=== PATIENT | female | born 1995 | race American Indian/Alaskan Native ===

== ENCOUNTER 2019-12-19 15:53 | Emergency (ER) | payer MEDICAID ==
[2019-12-19 16:27] LABS: Basophils # (Auto) 0.1 K/mm3 (0.0-0.1); Basophils % (Auto) 1.3 % (0.0-1.8); Eosinophils # (Auto) 0.1 K/mm3 (0.0-0.4); Eosinophils % (Auto) 1.6 % (0.0-4.3); Hematocrit 45.4 % (30.3-42.9); Hemoglobin 15.3 gm/dl (10.1-14.3); Lymphocytes # (Auto) 1.6 K/mm3 (1.2-5.4); Lymphocytes % (Auto) 18.3 % (13.4-35.0); Mean Corpuscular HGB Conc 34 % (30-34); Mean Corpuscular Volume 95 fl (79-97); Monocytes # (Auto) 0.6 K/mm3 (0.0-0.8); Monocytes % (Auto) 6.8 % (0.0-7.3); Platelet Count 228 K/mm3 (140-440); Red Cell Distribution Width 13.3 % (13.2-15.2)
[2019-12-19 16:46] LABS: BUN/Creatinine Ratio 9; Blood Urea Nitrogen 7 mg/dL (7-17); Calcium 10.4 mg/dL (8.4-10.2); Hemolysis Index 46
[2019-12-19 17:55] VITALS: BP 146/89
== END 2019-12-19 17:42 | disposition left against medical advice (07) ==
LOC: ED 15:53
DX: F22 Delusional disorders (principal); F20.9 Schizophrenia, unspecified; F31.9 Bipolar disorder, unspecified; Z53.21 Procedure and treatment not carried out due to patient leaving prior to being seen by health care provider
CPT/HCPCS: 36415; 80048; 80320; 85025; G0480

== ENCOUNTER 2019-12-20 08:59 | Emergency (ER) | payer MEDICAID ==
[2019-12-20] MEDS ORDERED: LORazepam 2 MG/ML VIAL IM ONE ×2 (09:45→17:24)
[2019-12-20] MEDS ORDERED: ZIPRASIDONE MESYLATE 20 MG VIAL IM ONE (09:45)
[2019-12-20] MEDS ORDERED: ACETAMINOPHEN 325 MG TAB PO PRN (09:46)
[2019-12-20] MEDS ORDERED: MAGNESIUM HYDROXIDE (MOM) ORAL LIQD UDC PO PRN (09:46)
[2019-12-20] MEDS ORDERED: ALUM-MAG HYDROXIDE-SIMETHICONE 200-200-20MG/5ML ORAL LIQD 30 ML PO PRN (09:46)
[2019-12-20 11:59] LABS: BUN/Creatinine Ratio 8; Blood Urea Nitrogen 7 mg/dL (7-17); Calcium 9.9 mg/dL (8.4-10.2); Hemolysis Index 15
[2019-12-20 12:03] LABS: Alanine Aminotransferase 23 units/L (7-56); Albumin 4.3 g/dL (3.9-5)
[2019-12-20 12:06] LABS: Bilirubin,Direct < 0.2 mg/dL (0-0.2)
[2019-12-20 12:12] LABS: Basophils % (Auto) 0.5 % (0.0-1.8); Eosinophils # (Auto) 0.2 K/mm3 (0.0-0.4); Hematocrit 42.5 % (30.3-42.9); Hemoglobin 14.5 gm/dl (10.1-14.3); Lymphocytes # (Auto) 1.9 K/mm3 (1.2-5.4); Lymphocytes % (Auto) 19.5 % (13.4-35.0); Mean Corpuscular HGB Conc 34 % (30-34); Mean Corpuscular Volume 95 fl (79-97); Monocytes # (Auto) 0.8 K/mm3 (0.0-0.8); Monocytes % (Auto) 8.7 % (0.0-7.3); Platelet Count 210 K/mm3 (140-440); Red Blood Count 4.49 M/mm3 (3.65-5.03); Red Cell Distribution Width 13.5 % (13.2-15.2)
--- NOTE | 2019-12-20 12:22 | Emergency Department Report ---
ED Psych HPI - General Chief Complaint: Psych Stated Complaint: MENTAL HEALTH Time Seen by Provider: 12/20/19 09:45 Source: patient Mode of arrival: Ambulatory - History of Present Illness Initial Comments: This is a 53-year-old female with a history of bipolar disorder/schizophrenia. She is brought in by her family for "erratic behavior". On arrival she is quite agitated with flight of ideas. She cannot be examined. She required parenteral Geodon and Ativan. That after she became copacetic. She has no active complaints. She is speaking in single words. MD Complaint: other (Excited delirium) Associated Psychiatric Symptoms: racing thoughts, delusions, other (Aggressive behavior) Quality: constant Improves With: none Worsens With: none - Related Data Allergies Allergy/AdvReac Type Severity Reaction Status Date / Time No Known Allergies Allergy Unverified 12/19/19 16:03 ED Review of Systems ROS: Stated complaint: MENTAL HEALTH Other details as noted in HPI Comment: Unobtainable due to pts medical conditions ED Past Medical Hx - Past Medical History Previous Medical History?: Yes Hx Psychiatric Treatment: Yes (Bipolar, Schizophrenia) Additional medical history: Vaginal delivery x 1 - Surgical History Past Surgical History?: Yes Additional Surgical History: x 2 - Social History Smoking Status: Current Every Day Smoker Substance Use Type: Alcohol, Cocaine, Heroin, Marijuana ED Physical Exam - General Limitations: No Limitations General appearance: alert, in no apparent distress - Head Head exam: Present: atraumatic, normocephalic - Eye Eye exam: Present: normal appearance. Absent: scleral icterus - ENT ENT exam: Present: mucous membranes moist - Neck Neck exam: Present: normal inspection. Absent: tenderness, meningismus - Respiratory Respiratory exam: Present: normal lung sounds bilaterally. Absent: respiratory distress - Cardiovascular Cardiovascular Exam: Present: regular rate, normal rhythm. Absent: systolic murmur, diastolic murmur, rubs, gallop - GI/Abdominal GI/Abdominal exam: Present: soft, normal bowel sounds. Absent: distended, tenderness, guarding, rebound, rigid - Extremities Exam Extremities exam: Present: normal inspection - Back Exam Back exam: Present: normal inspection - Neurological Exam Neurological exam: Present: alert, oriented X3, CN II-XII intact (As testable). Absent: motor sensory deficit - Psychiatric Psychiatric exam: Present: agitated, manic - Skin Skin exam: Present: warm, dry, intact, normal color. Absent: rash ED Course Vital Signs 12/20/19 12/20/19 09:08 09:30 Temperature 97.6 F Pulse Rate 103 H 74 Respiratory 18 20 Rate Blood Pressure 154/90 109/67 [Right] O2 Sat by Pulse 98 96 Oximetry - Reevaluation(s) Reevaluation #1: Required chemical sedation. Was given Geodon and Ativan. Patient improved. She is still very disorganized and further history is unobtainable. 12/20/19 12:21 ED Medical Decision Making - Lab Data Result diagrams: 12/20/19 11:14 12/20/19 11:14 Laboratory Results - last 24 hr 12/20/19 12/20/19 12/20/19 11:14 11:14 11:14 WBC 9.6 RBC 4.49 Hgb 14.5 H Hct 42.5 MCV 95 MCH 32 MCHC 34 RDW 13.5 Plt Count 210 Lymph % (Auto) 19.5 [place] % (Auto) 8.7 H Eos % (Auto) 2.0 Baso % (Auto) 0.5 Lymph # (Auto) 1.9 [place] # (Auto) 0.8 Eos # (Auto) 0.2 Baso # (Auto) 0.0 Seg Neutrophils % 69.3 Seg Neutrophils # 6.6 Sodium 140 Potassium 3.9 Chloride 105.0 Carbon Dioxide 25 Anion Gap 14 BUN 7 Creatinine 0.9 Estimated GFR > 60 BUN/Creatinine Ratio 8 Glucose 82 Calcium 9.9 Total Bilirubin Direct Bilirubin AST ALT Alkaline Phosphatase Total Creatine Kinase CK-MB (CK-2) CK-MB (CK-2) Rel Index Total Protein Albumin Albumin/Globulin Ratio Salicylates < 0.3 L Acetaminophen 12/20/19 12/20/19 11:14 11:14 WBC RBC Hgb Hct MCV MCH MCHC RDW Plt Count Lymph % (Auto) [place] % (Auto) Eos % (Auto) Baso % (Auto) Lymph # (Auto) [place] # (Auto) Eos # (Auto) Baso # (Auto) Seg Neutrophils % Seg Neutrophils # Sodium Potassium Chloride Carbon Dioxide Anion Gap BUN Creatinine Estimated GFR BUN/Creatinine Ratio Glucose Calcium Total Bilirubin 0.50 Direct Bilirubin < 0.2 AST 22 ALT 23 Alkaline Phosphatase 122 Total Creatine Kinase 257 H CK-MB (CK-2) 3.0 CK-MB (CK-2) Rel Index 1.1 Total Protein 7.2 Albumin 4.3 Albumin/Globulin Ratio 1.5 Salicylates Acetaminophen 5.0 L Critical care attestation.: If time is entered above; I have spent that time in minutes in the direct care of this critically ill patient, excluding procedure time. ED Disposition Clinical Impression: Delirium, Acute psychosis, Polysubstance abuse, Medical clearance for psychiatric admission Disposition: [id number]/TX-65 PSY HOSP/PSY UNIT Is pt being admited?: No Does the pt Need Aspirin: No Condition: Stable Referrals: PRIMARY CARE, [Primary Care Provider] - 3-5 Days Time of Disposition: 12:22
[2019-12-20] MEDS ORDERED: ZIPRASIDONE MESYLATE 20 MG VIAL IM PRN (12:23)
[2019-12-20 14:39] LABS: Bacteria,Urine 2+ /HPF (Negative); Bilirubin,Urine NEG (Negative); Blood,Urine LG (Negative); Color,Urine Amber (Yellow); Mucus,Urine 3+ /HPF
[2019-12-20 14:55] LABS: Amphetamine Screen,Urine Negative; Benzodiazepines Screen,Urine Negative; Cannabinoid Screen,Urine Negative; Cocaine Screen,Urine Negative; Methadone Screen,Urine Negative; Opiate Screen,Urine Negative
[2019-12-20] MEDS ORDERED: LORazepam 2 MG/ML VIAL ONE (17:20)
[2019-12-20] MEDS ORDERED: HALOPERIDOL LACTATE 5 MG/1 ML INJ ONE (17:20)
[2019-12-20] MEDS ORDERED: HALOPERIDOL LACTATE 5 MG/1 ML INJ IM ONE (17:24)
[2019-12-20] MEDS: ZIPRASIDONE 20 MG CAP PO SCH (21:35)
[2019-12-21 07:50] VITALS: BP 124/77
--- NOTE | 2019-12-21 09:42 | Consultation ---
History of Present Illness - Reason for Consult Consult date: 12/21/19 Reason for consult: erratic behavior - History of Present Psychiatric Illness Shavon Maldonado is a 24y/o female patient who was brought in by for erratic behavior. At the time the patient was agitated and having flight of ideas, according to chart. During my interview with the patient today, she is initially on the phone. She greets me as I'm walking up. She is calm, cooperative, polite and pleasant. She makes good eye contact. The patient states she was brought in yesterday, "for acting crazy." She then laughs. She says "ma'am I just need my meds. I've been off too long." She says she has a history of "bipolar, anxiety and schizophrenia." When asked about SI/HI, the patient states, "oh no, and I've never been, now or never." She says "I got too many kids to even think about harming myself or anyone." The patient says she has "seven kids." She says, "not at all am I suicidal." She denies hallucinations of any kind. She denies any illicit drug use, alcohol or nicotine. She says "I have two jobs, I work hard. I just need to get back on my meds." The patient says, "I work for [employer] and [employer]." PAST PSYCHIATRIC HISTORY: Diagnoses: bipolar, anxiety and schizophrenia Suicide attempts or Self-harm behavior: Denies Prior psychiatric hospitalizations: Yes Substance Abuse history: Denies Previous psychiatric medications tried: Unable to recall Outpatient treatment: Not currently PAST MEDICAL HISTORY: None reported Family Psychiatric History None reported SOCIAL HISTORY Marital Status: Living Arrangements: with daughter Employment Status: Unemployed Access to guns/weapons: Denied Education: History of Abuse: Denies Legal History: Denies ROS: Constitutional: Negative for weight loss ENT: Negative for stridor Respiratory: Negative for cough or hemoptysis All other systems reviewed and are negative MENTAL STATUS EXAMINATION General Appearance and Behavior: Age appropriate, fair hygiene, wearing appropriate clothes, good eye contact, cooperative, polite with questioning. Cooperation: Participating Psychomotor Behavior: Normal Mood: "much better" Affect and affective range: Congruent with stated mood Thought Process: Goal directed Thought Content: None Speech: Normal volume, Regular rate and rhythm Suicidal Ideation: Denies Homicidal Ideation: Denies Hallucinations: Denies Delusions: None elicited Impulse Control: Normal Insight and Judgment: Normal Memory/Cognition: Normal Orientation: Alert, oriented Assessment and Plan Bipolar Disorder Noncompliance with medical regimen and other treatment TREATMENT PLAN d/c 1013 Geodon 40mgmg po BID Vistaril 25mg po BID prn anxiety Sitter: Defer to primary Medical: Per primary Disposition: Do not recommend acute inpatient psychiatric treatment. The patient understands that if any fear or feelings of endangerment are to arise she is to seek immediate assistance including but not limited to the crisis hotline, 911, and ER. The linux support engineer is to give the patient referrals for outpatient psych, and cognitive behavioral therapy The patient is to follow up with outpatient psych in 7 to 14 days upon discharge The linux support engineer is further discuss the safety plan Will sign off. Thank you for this consult Medications and Allergies Allergies Allergy/AdvReac Type Severity Reaction Status Date / Time No Known Allergies Allergy Unverified 12/19/19 16:03 Home Medications Medication Instructions Recorded Confirmed Last Taken Type Ibuprofen [Motrin] 800 mg PO Q8HR PRN 12/21/19 12/21/19 Unknown History Ziprasidone [Geodon] 40 mg PO BID #60 capsule 12/21/19 Unknown Rx diazePAM [Diazepam] 5 mg PO PRN 12/21/19 12/21/19 Unknown History hydrOXYzine PAMOATE [Vistaril] 25 mg PO BID PRN #60 capsule 12/21/19 Unknown Rx Active Meds: Active Medications Acetaminophen (Tylenol) 650 mg PO Q4HR PRN PRN Reason: Pain MILD(1-3)/Fever >100.5/SAX[place] Al Hydrox/Mg Hydrox/Simethicone (Alum-Mag Hydrox-Simeth [phone]/5ml) 30 ml PO Q4HR PRN PRN Reason: Indigestion Magnesium Hydroxide (Milk Of Magnesia) 30 ml PO Q12HR PRN PRN Reason: Constipation Ziprasidone (Geodon) 10 mg IM Q12H PRN PRN Reason: Agitation Ziprasidone (Geodon) 40 mg PO BID [facility] Last Admin: 12/20/19 21:35 Dose: 40 mg Documented by: Mental Status Exam - Vital signs Last Vital Signs Temp 98.3 F 12/21/19 07:47 Pulse 68 11/10/20 07:47 Resp 18 12/21/19 07:47 BP 124/77 12/21/19 07:47 Pulse Ox 96 12/21/19 07:47 Results Result Diagrams: 12/20/19 11:14 12/20/19 11:14 Abnormal lab results 12/20/19 12/20/19 12/20/19 Range/Units 11:14 11:14 11:14 Hgb 14.5 H (10.1-14.3) gm/dl [place] % (Auto) 8.7 H (0.0-7.3) % Total Creatine Kinase (30-135) units/L Urine WBC (Auto) (0.0-6.0) /HPF Salicylates < 0.3 L (2.8-20.0) mg/dL Acetaminophen 5.0 L (10.0-30.0) ug/mL 12/20/19 12/20/19 Range/Units 11:14 Unknown Hgb (10.1-14.3) gm/dl [place] % (Auto) (0.0-7.3) % Total Creatine Kinase 257 H (30-135) units/L Urine WBC (Auto) 35.0 H (0.0-6.0) /HPF Salicylates (2.8-20.0) mg/dL Acetaminophen (10.0-30.0) ug/mL All other labs normal.
[2019-12-21] MEDS: ZIPRASIDONE 20 MG CAP PO SCH (10:12)
--- NOTE | 2019-12-21 10:41 | Event Note ---
Date: 12/21/19 The patient was evaluated in the emergency department for symptoms described in the history of present illness. He/she was evaluated in the context of the global COVID-19 pandemic, which necessitated consideration that the patient might be at risk for infection with the virus that causes COVID-19. Institutional protocols and algorithms that pertain to the evaluation of patients at risk for COVID-19 are in a state of rapid change based on information released by regulatory bodies including the [facility] and federal and state organizations. These policies and algorithms were followed during the patient's care in the emergency department. Please note that these policies, procedures and recommendations changed on a rapid basis. The patient was evaluated in the emergency department for symptoms described in the history of present illness. He/she was evaluated in the context of the global COVID-19 pandemic, which necessitated consideration that the patient might be at risk for infection with the virus that causes COVID-19. Institutional protocols and algorithms that pertain to the evaluation of patients at risk for COVID-19 are in a state of rapid change based on information released by regulatory bodies including the [facility] and federal and state organizations. These policies and algorithms were followed during the patient's care in the emergency department. Please note that these policies, procedures and recommendations changed on a rapid basis. Patient seen and examined. She denies physical pain and complaints at this ti me. She denies urinary symptoms. She is not homicidal or suicidal. She was cleared by the psychiatric team today. It appears that she was medically cleared yesterday. On my evaluation, she is alert, oriented, sober, and denies all medical complaints at this time. She exhibits decision-making capacity, and a rational/lucid thought process. She specifically denies urinary symptoms. She states that she will follow-up with an outpatient primary care doctor, and reports that her is here to take her home. Her psychiatric medications were continued by the psychiatric team. She will be given Macrobid for her bacteriuria. Vital Signs 12/20/19 12/20/19 12/21/19 09:08 09:30 01:05 Temperature 97.6 F 98.4 F Pulse Rate 103 H 74 68 Respiratory 18 20 18 Rate Blood Pressure 154/90 109/67 122/83 [Right] O2 Sat by Pulse 98 96 98 Oximetry 12/21/19 07:47 Temperature 98.3 F Pulse Rate 68 Respiratory 18 Rate Blood Pressure 124/77 [Right] O2 Sat by Pulse 96 Oximetry Lab Results 12/20/19 12/20/19 12/20/19 Range/Units 11:14 11:14 11:14 WBC 9.6 (4.5-11.0) K/mm3 RBC 4.49 (3.65-5.03) M/mm3 Hgb 14.5 H (10.1-14.3) gm/dl Hct 42.5 (30.3-42.9) % MCV 95 (79-97) fl MCH 32 (28-32) pg MCHC 34 (30-34) % RDW 13.5 (13.2-15.2) % Plt Count 210 (140-440) K/mm3 Lymph % (Auto) 19.5 (13.4-35.0) % [place] % (Auto) 8.7 H (0.0-7.3) % Eos % (Auto) 2.0 (0.0-4.3) % Baso % (Auto) 0.5 (0.0-1.8) % Lymph # (Auto) 1.9 (1.2-5.4) K/mm3 [place] # (Auto) 0.8 (0.0-0.8) K/mm3 Eos # (Auto) 0.2 (0.0-0.4) K/mm3 Baso # (Auto) 0.0 (0.0-0.1) K/mm3 Seg Neutrophils % 69.3 (40.0-70.0) % Seg Neutrophils # 6.6 (1.8-7.7) K/mm3 Sodium 140 (137-145) mmol/L Potassium 3.9 (3.6-5.0) mmol/L Chloride 105.0 (98-107) mmol/L Carbon Dioxide 25 (22-30) mmol/L Anion Gap 14 mmol/L BUN 7 (7-17) mg/dL Creatinine 0.9 (0.6-1.2) mg/dL Estimated GFR > 60 ml/min BUN/Creatinine Ratio 8 % Glucose 82 (65-100) mg/dL Calcium 9.9 (8.4-10.2) mg/dL Total Bilirubin (0.1-1.2) mg/dL Direct Bilirubin (0-0.2) mg/dL AST (5-40) units/L ALT (7-56) units/L Alkaline Phosphatase (35-129) units/L Total Creatine Kinase (30-135) units/L CK-MB (CK-2) (0.0-4.0) ng/mL CK-MB (CK-2) Rel Index (0-4) Total Protein (6.3-8.2) g/dL Albumin (3.9-5) g/dL Albumin/Globulin Ratio % Urine Color (Yellow) Urine Turbidity (Clear) Urine pH (5.0-7.0) Ur Specific [place] (1.003-1.030) Urine Protein (Negative) mg/dL Urine Glucose (UA) (Negative) mg/dL Urine Ketones (Negative) mg/dL Urine Blood (Negative) Urine Nitrite (Negative) Urine Bilirubin (Negative) Urine Urobilinogen (<2.0) mg/dL Ur Leukocyte Esterase (Negative) Urine WBC (Auto) (0.0-6.0) /HPF Urine RBC (Auto) (0.0-6.0) /HPF U Epithel Cells (Auto) (0-13.0) /HPF Urine Bacteria (Auto) (Negative) /HPF Urine Mucus /HPF Salicylates < 0.3 L (2.8-20.0) mg/dL Urine Opiates Screen Urine Methadone Screen Acetaminophen (10.0-30.0) ug/mL Ur Barbiturates Screen Ur Phencyclidine Scrn Ur Amphetamines Screen U Benzodiazepines Scrn Urine Cocaine Screen U Marijuana (THC) Screen Drugs of Abuse Note 12/20/19 12/20/19 12/20/19 Range/Units 11:14 11:14 Unknown WBC (4.5-11.0) K/mm3 RBC (3.65-5.03) M/mm3 Hgb (10.1-14.3) gm/dl Hct (30.3-42.9) % MCV (79-97) fl MCH (28-32) pg MCHC (30-34) % RDW (13.2-15.2) % Plt Count (140-440) K/mm3 Lymph % (Auto) (13.4-35.0) % [place] % (Auto) (0.0-7.3) % Eos % (Auto) (0.0-4.3) % Baso % (Auto) (0.0-1.8) % Lymph # (Auto) (1.2-5.4) K/mm3 [place] # (Auto) (0.0-0.8) K/mm3 Eos # (Auto) (0.0-0.4) K/mm3 Baso # (Auto) (0.0-0.1) K/mm3 Seg Neutrophils % (40.0-70.0) % Seg Neutrophils # (1.8-7.7) K/mm3 Sodium (137-145) mmol/L Potassium (3.6-5.0) mmol/L Chloride (98-107) mmol/L Carbon Dioxide (22-30) mmol/L Anion Gap mmol/L BUN (7-17) mg/dL Creatinine (0.6-1.2) mg/dL Estimated GFR ml/min BUN/Creatinine Ratio % Glucose (65-100) mg/dL Calcium (8.4-10.2) mg/dL Total Bilirubin 0.50 (0.1-1.2) mg/dL Direct Bilirubin < 0.2 (0-0.2) mg/dL AST 22 (5-40) units/L ALT 23 (7-56) units/L Alkaline Phosphatase 122 (35-129) units/L Total Creatine Kinase 257 H (30-135) units/L CK-MB (CK-2) 3.0 (0.0-4.0) ng/mL CK-MB (CK-2) Rel Index 1.1 (0-4) Total Protein 7.2 (6.3-8.2) g/dL Albumin 4.3 (3.9-5) g/dL Albumin/Globulin Ratio 1.5 % Urine Color [place] (Yellow) Urine Turbidity Slightly-cloudy (Clear) Urine pH 5.0 (5.0-7.0) Ur Specific [place] 1.026 (1.003-1.030) Urine Protein 100 mg/dl (Negative) mg/dL Urine Glucose (UA) Neg (Negative) mg/dL Urine Ketones 20 (Negative) mg/dL Urine Blood Lg (Negative) Urine Nitrite Pos (Negative) Urine Bilirubin Neg (Negative) Urine Urobilinogen 4.0 (<2.0) mg/dL Ur Leukocyte Esterase Tr (Negative) Urine WBC (Auto) 35.0 H (0.0-6.0) /HPF Urine RBC (Auto) 35.0 (0.0-6.0) /HPF U Epithel Cells (Auto) 6.0 (0-13.0) /HPF Urine Bacteria (Auto) 2+ (Negative) /HPF Urine Mucus 3+ /HPF Salicylates (2.8-20.0) mg/dL Urine Opiates Screen Urine Methadone Screen Acetaminophen 5.0 L (10.0-30.0) ug/mL Ur Barbiturates Screen Ur Phencyclidine Scrn Ur Amphetamines Screen U Benzodiazepines Scrn Urine Cocaine Screen U Marijuana (THC) Screen Drugs of Abuse Note 12/20/19 Range/Units Unknown WBC (4.5-11.0) K/mm3 RBC (3.65-5.03) M/mm3 Hgb (10.1-14.3) gm/dl Hct (30.3-42.9) % MCV (79-97) fl MCH (28-32) pg MCHC (30-34) % RDW (13.2-15.2) % Plt Count (140-440) K/mm3 Lymph % (Auto) (13.4-35.0) % [place] % (Auto) (0.0-7.3) % Eos % (Auto) (0.0-4.3) % Baso % (Auto) (0.0-1.8) % Lymph # (Auto) (1.2-5.4) K/mm3 [place] # (Auto) (0.0-0.8) K/mm3 Eos # (Auto) (0.0-0.4) K/mm3 Baso # (Auto) (0.0-0.1) K/mm3 Seg Neutrophils % (40.0-70.0) % Seg Neutrophils # (1.8-7.7) K/mm3 Sodium (137-145) mmol/L Potassium (3.6-5.0) mmol/L Chloride (98-107) mmol/L Carbon Dioxide (22-30) mmol/L Anion Gap mmol/L BUN (7-17) mg/dL Creatinine (0.6-1.2) mg/dL Estimated GFR ml/min BUN/Creatinine Ratio % Glucose (65-100) mg/dL Calcium (8.4-10.2) mg/dL Total Bilirubin (0.1-1.2) mg/dL Direct Bilirubin (0-0.2) mg/dL AST (5-40) units/L ALT (7-56) units/L Alkaline Phosphatase (35-129) units/L Total Creatine Kinase (30-135) units/L CK-MB (CK-2) (0.0-4.0) ng/mL CK-MB (CK-2) Rel Index (0-4) Total Protein (6.3-8.2) g/dL Albumin (3.9-5) g/dL Albumin/Globulin Ratio % Urine Color (Yellow) Urine Turbidity (Clear) Urine pH (5.0-7.0) Ur Specific [place] (1.003-1.030) Urine Protein (Negative) mg/dL Urine Glucose (UA) (Negative) mg/dL Urine Ketones (Negative) mg/dL Urine Blood (Negative) Urine Nitrite (Negative) Urine Bilirubin (Negative) Urine Urobilinogen (<2.0) mg/dL Ur Leukocyte Esterase (Negative) Urine WBC (Auto) (0.0-6.0) /HPF Urine RBC (Auto) (0.0-6.0) /HPF U Epithel Cells (Auto) (0-13.0) /HPF Urine Bacteria (Auto) (Negative) /HPF Urine Mucus /HPF Salicylates (2.8-20.0) mg/dL Urine Opiates Screen Negative Urine Methadone Screen Negative Acetaminophen (10.0-30.0) ug/mL Ur Barbiturates Screen Negative Ur Phencyclidine Scrn Negative Ur Amphetamines Screen Negative U Benzodiazepines Scrn Negative Urine Cocaine Screen Negative U Marijuana (THC) Screen Negative Drugs of Abuse Note Disclamer
== END 2019-12-21 10:50 | disposition home or self-care (01) ==
LOC: ED 08:59
DX: F23 Brief psychotic disorder (principal); F15.10 Other stimulant abuse, uncomplicated; R41.0 Disorientation, unspecified; F17.200 Nicotine dependence, unspecified, uncomplicated; F12.90 Cannabis use, unspecified, uncomplicated; F14.90 Cocaine use, unspecified, uncomplicated; F11.90 Opioid use, unspecified, uncomplicated; Z98.890 Other specified postprocedural states; Z00.8 Encounter for other general examination
CPT/HCPCS: 36415; 80048; 80076; 80307; 81001; 82550; 82553; 85025; 87086; 96372; 99284; J1630; J2060; J3486; 80320; G0480

== ENCOUNTER 2020-01-12 10:00 | Emergency (ER) | payer MEDICAID ==
[2020-01-12 10:24] VITALS: BP 149/109
[2020-01-12] MEDS ORDERED: LORazepam 1 MG TAB PO ONE (10:48)
[2020-01-12 11:19] LABS: Basophils % (Auto) 0.3 % (0.0-1.8); Eosinophils # (Auto) 0.2 K/mm3 (0.0-0.4); Eosinophils % (Auto) 1.5 % (0.0-4.3); Hematocrit 43.8 % (30.3-42.9); Hemoglobin 14.8 gm/dl (10.1-14.3); Lymphocytes # (Auto) 1.8 K/mm3 (1.2-5.4); Lymphocytes % (Auto) 17.7 % (13.4-35.0); Mean Corpuscular HGB Conc 34 % (30-34); Mean Corpuscular Volume 93 fl (79-97); Monocytes # (Auto) 0.6 K/mm3 (0.0-0.8); Monocytes % (Auto) 6.3 % (0.0-7.3); Platelet Count 224 K/mm3 (140-440); Red Cell Distribution Width 13.5 % (13.2-15.2)
[2020-01-12 11:40] LABS: BUN/Creatinine Ratio 9; Blood Urea Nitrogen 7 mg/dL (7-17); Calcium 10.2 mg/dL (8.4-10.2); Hemolysis Index 7
--- NOTE | 2020-01-12 11:40 | Emergency Department Report ---
ED Psych HPI - General Chief Complaint: Psych Stated Complaint: MENTAL HEALTH Time Seen by Provider: 01/12/20 10:41 Source: patient, EMS Mode of arrival: Ambulatory Limitations: No Limitations - History of Present Illness Initial Comments: CC: "I am having a lot of anxiety." HPI: THis is a 24 yo female with hx of anxiety disorder, bipolar disorder and schizophrnia who presents with "lots of anxiety". She is stressed with 7 kids at home. She denies SI/HI/hallucinations. She has not taken psychiatric medications recently. She states that the medications make her feel crazy. called EMS for transport to the hospital. SHe denies physicial complaints. Last month patient was evaluated in the ED for similar symptoms. She was evaluated by psychiatric team. She was discharged with prescriptions for Geodon and Vistaril. MD Complaint: other (Anxious depressed mood) -: Gradual, days(s) Associated Psychiatric Symptoms: depression, other (Anxiety) History of same: Yes Quality: constant Improves With: none Worsens With: none Context: recent drug abuse Associated Symptoms: denies other symptoms Treatments Prior to Arrival: none (EMS transport) - Related Data Home Medications Medication Instructions Recorded Confirmed Last Taken Ibuprofen [Motrin] 800 mg PO Q8HR PRN 12/21/19 12/21/19 Unknown diazePAM [Diazepam] 5 mg PO PRN 12/21/19 12/21/19 Unknown Previous Rx's Medication Instructions Recorded Last Taken Type Nitrofurantoin Mower/M-Cryst 100 mg PO Q12HR #14 capsule 12/21/19 Unknown Rx [Macrobid CAP] Ziprasidone [Geodon] 40 mg PO BID #60 capsule 12/21/19 Unknown Rx hydrOXYzine PAMOATE [Vistaril] 25 mg PO BID PRN #60 capsule 12/21/19 Unknown Rx Allergies Allergy/AdvReac Type Severity Reaction Status Date / Time No Known Allergies Allergy Unverified 12/19/19 16:03 ED Review of Systems ROS: Stated complaint: MENTAL HEALTH Other details as noted in HPI Comment: All other systems reviewed and negative Constitutional: denies: fever, malaise Respiratory: denies: cough, shortness of breath Cardiovascular: denies: chest pain Gastrointestinal: denies: abdominal pain, nausea, vomiting Psychiatric: anxiety, depression ED Past Medical Hx - Past Medical History Previous Medical History?: Yes Hx Psychiatric Treatment: Yes (Bipolar, Schizophrenia) Additional medical history: Vaginal delivery x 1 - Surgical History Past Surgical History?: Yes Additional Surgical History: x 2 - Social History Smoking Status: Current Every Day Smoker Substance Use Type: None - Medications Home Medications: Home Medications Medication Instructions Recorded Confirmed Last Taken Type Ibuprofen [Motrin] 800 mg PO Q8HR PRN 12/21/19 12/21/19 Unknown History Nitrofurantoin Mower/M-Cryst 100 mg PO Q12HR #14 capsule 12/21/19 Unknown Rx [Macrobid CAP] Ziprasidone [Geodon] 40 mg PO BID #60 capsule 12/21/19 Unknown Rx diazePAM [Diazepam] 5 mg PO PRN 12/21/19 12/21/19 Unknown History hydrOXYzine PAMOATE [Vistaril] 25 mg PO BID PRN #60 capsule 12/21/19 Unknown Rx ED Physical Exam - General Limitations: No Limitations General appearance: alert, in no apparent distress, other (Patient is tearful anxious obviously upset) - Head Head exam: Present: atraumatic, normocephalic - Eye Eye exam: Present: normal appearance - ENT ENT exam: Present: mucous membranes moist - Neck Neck exam: Present: normal inspection, full ROM - Respiratory Respiratory exam: Present: normal lung sounds bilaterally. Absent: respiratory distress, wheezes, rales, rhonchi - Cardiovascular Cardiovascular Exam: Present: regular rate, normal rhythm, normal heart sounds. Absent: systolic murmur, diastolic murmur, rubs, gallop - GI/Abdominal GI/Abdominal exam: Present: soft, normal bowel sounds. Absent: distended, ten derness, guarding, rebound - Extremities Exam Extremities exam: Present: normal inspection - Neurological Exam Neurological exam: Present: alert, oriented X3 - Psychiatric Psychiatric exam: Present: normal affect, depressed, anxious - Skin Skin exam: Present: warm, dry, intact, normal color. Absent: rash ED Course Vital Signs 01/12/20 10:21 Temperature 98.7 F Pulse Rate 130 H Respiratory 20 Rate Blood Pressure 149/109 O2 Sat by Pulse 100 Oximetry ED Medical Decision Making - Lab Data Result diagrams: 01/12/20 10:58 01/12/20 10:58 - Medical Decision Making This is a 24-year-old female with history of anxiety, bipolar disorder, schizophrenia who presents with anxiety and depression. She denies suicidal homicidal ideation. She denies hallucinations. She is medically clear for psychiatric care. Awaiting treatment recommendations from our psychiatric team. I have reviewed labs obtained including CBC chemistry serum toxicology. All labs are within normal limits. Urine tox screen positive for cocaine. Urinalysis negative for infection. Patient was recommended for outpatient treatment by psychiatric team. Critical care attestation.: If time is entered above; I have spent that time in minutes in the direct care of this critically ill patient, excluding procedure time. ED Disposition Clinical Impression: Anxiety, Bipolar disease, chronic, Schizophrenia, Drug abuse, cocaine type Disposition: DC-01 TO HOME OR SELFCARE Is pt being admited?: No Does the pt Need Aspirin: No Condition: Stable Additional Instructions: Children [address] [place] [address] Department of public health [phone] [place], [place] In [place] [employer] [facility] [place], [place], [place] [facility] No reviews [facility] service [facility]- [place], [place] Open Closes [phone] [facility] No reviews Mental health service [place], [place] In [facility] Packaging Operator [place], [place], [place] [facility] Medical [place], [place] [facility] Child psychologist [place], [place] In [facility] Specialized clinic [place], [place] In [facility] [place] [facility] [place] health service [place], [place] [facility] No reviews Medical [place], [place] [facility] Medical [place], [place] In [facility] health care centre [place], [place] [facility] Specialized clinic [place], [place] In [facility] Mental health clinic [place], [place] [facility] support organization [place], [place] In [facility] Mental health service [place], [place] OUTPATIENT MENTAL HEALTH RESOURCES [facility], [facility] Lisa Damico MD: [address] [place] [address], [address] [place] [address] [place] [id number] [place] [facility]: [employer] [address] [place] [address] [place] [address] [phone] [facility] Integrative Psychiatry: [facility] Healthcare: [address] [facility] [place] [address] [facility] [address] [facility]: Jt Castellanos MD: [address] [facility] [address] [facility] [id number] [facility]: [address] [place], [place] [id number] [phone] IN CRISIS AND ACCESS LINE: Professional and Agency Contacts To help Resolve Crises(02/09) [place] Crisis Line: Suicide Prevention Line: Crisis Text Line: Text START to 164306 Emergency: 911 Outpatient COMMUNITY Behavioral Health Resources: DEKALB: [facility] [address] [place], [place] [address] ANDREI: Heri Dorsey [facility] - [address] [place] [address] Friday thru Friday - 8am - 5pm MICHEAL: [facility] Address: [address] [place] [address], [place] [address] Friday thru Friday- 7am-2pm [facility] Address: [address], [place] [address] Friday thru Friday: 8:30AM-5PM Referrals: [facility] Depart [Outside] - 3-5 Days
[2020-01-12 12:52] LABS: Bilirubin,Urine NEG (Negative); Blood,Urine NEG (Negative); Color,Urine Colorless (Yellow); Protein,Urine <15 mg/dL mg/dL (Negative); RBC,Urine < 1.0 /HPF (0.0-6.0); Urobilinogen,Urine < 2.0 mg/dL (<2.0)
[2020-01-12 12:58] LABS: WBC,Urine < 1.0 /HPF (0.0-6.0)
[2020-01-12 13:00] LABS: Amphetamine Screen,Urine PRESUMPTIVE NEGATIVE; Benzodiazepines Screen,Urine PRESUMPTIVE NEGATIVE; Cannabinoid Screen,Urine PRESUMPTIVE NEGATIVE; Cocaine Screen,Urine PRESUMPTIVE POSITIVE; Methadone Screen,Urine PRESUMPTIVE NEGATIVE; Opiate Screen,Urine PRESUMPTIVE NEGATIVE
== END 2020-01-12 13:25 | disposition home or self-care (01) ==
LOC: ED 10:00
DX: F25.0 Schizoaffective disorder, bipolar type (principal); F41.9 Anxiety disorder, unspecified; F14.10 Cocaine abuse, uncomplicated; F17.200 Nicotine dependence, unspecified, uncomplicated; Z79.899 Other long term (current) drug therapy; Z98.890 Other specified postprocedural states
CPT/HCPCS: 36415; 80048; 80307; 80320; 81001; 85025; G0480